=== PATIENT | male | born 1960 | race Two or more races ===

== ENCOUNTER 2018-08-22 10:57 | Emergency (ER) | payer OTHER ==
[~2018-08-22] VITALS: Ht 175.3 cm; Wt 87.1 kg
[2018-08-22] MEDS ORDERED: ASPIR 8181 MG (11:06)
[2018-08-22] MEDS ORDERED: CRESTOR5 MG (11:06)
== END 2018-08-22 18:30 | disposition home or self-care (01) ==
LOC: ER 10:57
DX: K57.90 Diverticulosis of intestine, part unspecified, without perforation or abscess without bleeding (principal); R10.32 Left lower quadrant pain